=== PATIENT | male | born 1980 | race Caucasian/White ===

== ENCOUNTER 2018-04-27 17:49 | Emergency (ER) | payer MEDICAID ==
--- NOTE | 2018-04-27 18:06 | EDPHY ---
H & P Time Seen by Provider: 04/27/18 18:06 HPI/ROS: HPI: This is a 37-year-old male who presents with Chief Complaint: Nausea, vomiting, alcohol withdrawal Location: GI Quality: Nausea, vomiting Duration: Started approximately 1-3 hours prior to arrival Signs and Symptoms: no fever, + nausea, + vomiting, + blood tinged vomit; no blood in stool, no abdominal bloating, no diarrhea, no back pain, no urinary symptoms, no testicular/groin pain, no indigestion, no chest pain, no shortness of breath Timing: Acute, intermittent episodes Severity: [id number] Context: Patient presents with sudden onset of nausea and vomiting and blood tinged vomit that started approximately 1-3 hours prior to arrival. He reports that he began to feel nauseous and anxious upon waking this morning. Approximately 1-3 hours prior to arrival he started to vomit several times. He noticed some blood tinge vomit. Denies any bright red vomit. Patient reports that he normally drinks a 5th of vodka daily for the last 2 years since his mother . Patient reports that his last drink was Thursday afternoon. Reports no prior hospitalizations for alcohol withdrawal or alcohol withdrawal seizures. [facility] is [facility]. He denies any homicidal ideation, suicidal ideation, hallucinations. No prior history of esophageal varices/gastritis. Modifying Factors: None Comment: ROS: A comprehensive 10 system review of systems is otherwise negative aside from elements mentioned in the history of present illness. MEDICAL/SURGICAL/SOCIAL HISTORY: Medical history: Alcoholism. Does not take any regular medications. Surgical history: Denies Social history: Employed. Divorce. Family history noncontributory. CONSTITUTIONAL: Extremely polite and cooperative, middle-aged white male, awake and alert, diaphoretic HEENT: Atraumatic and normocephalic, PERRL, EOMI. Nares patent; no rhinorrhea; no nasal mucosal edema. Tympanic membranes clear. Oropharynx clear, no exudate and moist pink mucosa. Airway patent. No lymphadenopathy. No meningismus. Cardiovascular: Normal S1/S2, tachycardia, regular rhythm, without murmur rub or gallop. PULMONARY/CHEST: Symmetrical and nontender. Clear to auscultation bilaterally. Good air movement. No accessory muscle usage. ABDOMEN: Soft, nondistended, moderate epigastric tenderness, no rebound, no guarding, no peritoneal signs, no masses or organomegaly. No CVAT. EXTREMITIES: 2/2 pulses, strength 5/5, no deformities, no clubbing, no cyanosis or edema. NEUROLOGICAL: no focal neuro deficits. GCS 15. SKIN: Warm, no erythema. no rash. Good capillary refill. Source: Patient, RN/MD Exam Limitations: No limitations Constitutional: Initial Vital Signs Temperature (C) 37 C 04/27/18 18:03 Heart Rate 146 H 04/27/18 18:03 Respiratory Rate 18 04/27/18 18:03 Blood Pressure 157/107 H 04/27/18 18:03 O2 Sat (%) 95 04/27/18 18:03 O2 Delivery Mode Room Air O2 (L/minute) 2 Allergies/Adverse Reactions: shellfish derived Allergy (Verified 04/27/18 18:08) sweet potato Allergy (Verified 04/27/18 18:08) Home Medications: Medication Instructions Recorded Ondansetron Odt [Zofran Odt 4 mg 4 mg PO Q4 PRN #12 tab 04/27/18 (*)] Pantoprazole Sodium [Protonix 40mg 40 mg PO DAILY #14 tab 04/27/18 (*)] Medical Decision Making - Diagnostics Imaging Results: Imaging Impressions Abdomen Ultrasound 04/27/18 19:16 Impression: 1. Technically somewhat limited examination negative for findings to suggest acute cholecystitis. 2. Suspect hepatic steatosis. 3. See above report for additional findings. Results called and discussed with Simona BLUM on 04/27/2018 at 20:16. ED Course/Re-evaluation: Vital signs reviewed upon arrival in show tachycardia and hypertension. Placed on awake overnight monitor. IV access and laboratory studies obtained. EKG ordered. 1830: Initial CIWA=10. Alcohol withdrawal protocol initiated. Patient given 2 L normal saline, IV Zofran 4 mg, IV Protonix 80 mg, p.o. Librium 50 mg, IV Ativan 4 mg No signs of delirium/coma/seizure activity EKG my read with attending shows sinus tachycardia with a rate of 148 beats per minute with prolonged QT interval of 591, nonspecific ST changes. 1914: reassessed patient. HR 145. IV Ativan 4 mg given. Labs reviewed and show stable H&H, no platelet dysfunction, sodium 133, creatinine 1.4, CO2 12, anion gap 27, T bili 3.1, conjugated bili 2.2, AST 67, lipase within normal limits. Hepatitis panel ordered along with abdominal ultrasound 2009: 2 L normal saline completed; repeat BNP level drawn. CIWA=5. IV Ativan 2 mg and another 1 L normal saline given. 2018: Called by radiologist, Dr. Alfredo West, who advises abdominal ultrasound shows no signs of cholecystitis, no cholelithiasis, no common bile duct dilatation, + fatty liver, pancreas is not visualized. 2044: Reassessed patient. Sleeping soundly. Reports relief of symptoms. Drinking water without difficulty. Repeat BNP level shows sodium 135, potassium 4.1, CO2 16, anion gap 17, creatinine 1.1 which is greatly improved from prior values. 2219: Vital signs improved. Ambulating to the restroom without ataxia. Patient has had a total of 8 mg of IV Ativan and 50 mg of p.o. Librium. He is asking to be [facility] to the [facility] which I feel is appropriate. I will give gastroenterology referral for EGD outpatient and Rx Protonix. Hepatitis panel negative. Eating and drinking without difficulty. No signs of gastric hemorrhage/ esophageal varices bleeding. This patient was seen under the supervision of my secondary supervising physician. I evaluated care for this patient independently. Discussed this patient with Dr. Mendoza. Differential Diagnosis: Abdominal pain including but not limited to appendicitis, cholecystitis, gastritis and urinary tract infection. - Data Points Laboratory Results: Laboratory Results 04/27/18 18:34 04/27/18 20:05 04/27/18 04/27/18 04/27/18 20:05 18:34 18:34 WBC RBC Hgb Hct MCV MCH MCHC RDW Plt Count MPV Neut % (Auto) Lymph % (Auto) [place] % (Auto) Eos % (Auto) Baso % (Auto) Nucleat RBC Rel Count Absolute Neuts (auto) Absolute Lymphs (auto) Absolute Monos (auto) Absolute Eos (auto) Absolute Basos (auto) Absolute Nucleated RBC Immature Gran % Immature Gran # RBC/WBC/PLT Morphology Platelet Estimate Sodium 135 mEq/L mEq/L 133 mEq/L L mEq/L (135-145) (135-145) Potassium 4.1 mEq/L mEq/L 4.5 mEq/L mEq/L (3.3-5.0) (3.3-5.0) Chloride 102 mEq/L mEq/L 94 mEq/L L mEq/L (97-110) (97-110) Carbon Dioxide 16 mEq/l L mEq/l 12 mEq/l L mEq/l (22-31) (22-31) Anion Gap 17 mEq/L H mEq/L 27 mEq/L H mEq/L (6-14) (6-14) BUN 10 mg/dL mg/dL 11 mg/dL mg/dL (7-23) (7-23) Creatinine 1.1 mg/dL mg/dL 1.4 mg/dL H mg/dL (0.7-1.3) (0.7-1.3) Estimated GFR > 60 57 Glucose 150 mg/dL H mg/dL 203 mg/dL H mg/dL (70-100) (70-100) Calcium 9.8 mg/dL mg/dL 11.7 mg/dL H mg/dL (8.5-10.4) (8.5-10.4) Phosphorus 3.0 mg/dL mg/dL (2.5-4.5) Total Bilirubin 3.1 mg/dL H mg/dL (0.1-1.4) Conjugated Bilirubin 0.9 mg/dL H mg/dL (0.0-0.5) Unconjugated Bilirubin 2.2 mg/dL H mg/dL (0.0-1.1) AST 67 IU/L H IU/L (17-59) ALT 59 IU/L IU/L (21-72) Alkaline Phosphatase 114 IU/L IU/L (38-126) Total Protein 9.0 g/dL H g/dL (6.3-8.2) Albumin 5.4 g/dL H g/dL (3.5-5.0) Lipase 195 IU/L IU/L (23-300) Hepatitis A IgM Ab NEGATIVE (NEGATIVE) Hep Bs Antigen NEGATIVE (NEGATIVE) Hep B Core IgM Ab NEGATIVE (NEGATIVE) Hepatitis C Antibody NEGATIVE (NEGATIVE) 04/27/18 18:34 WBC 7.59 10^3/uL 10^3/uL (3.80-9.50) RBC 5.65 10^6/uL 10^6/uL (4.40-6.38) Hgb 17.3 g/dL g/dL (13.7-17.5) Hct 50.2 % % (40.0-51.0) MCV 88.8 fL fL (81.5-99.8) MCH 30.6 pg pg (27.9-34.1) MCHC 34.5 g/dL g/dL (32.4-36.7) RDW 13.0 % % (11.5-15.2) Plt Count 249 10^3/uL 10^3/uL (150-400) MPV 10.2 fL fL (8.7-11.7) Neut % (Auto) 86.5 % H % (39.3-74.2) Lymph % (Auto) 7.4 % L % (15.0-45.0) [place] % (Auto) 5.5 % % (4.5-13.0) Eos % (Auto) 0.0 % L % (0.6-7.6) Baso % (Auto) 0.3 % % (0.3-1.7) Nucleat RBC Rel Count 0.0 % % (0.0-0.2) Absolute Neuts (auto) 6.57 10^3/uL H 10^3/uL (1.70-6.50) Absolute Lymphs (auto) 0.56 10^3/uL L 10^3/uL (1.00-3.00) Absolute Monos (auto) 0.42 10^3/uL 10^3/uL (0.30-0.80) Absolute Eos (auto) 0.00 10^3/uL L 10^3/uL (0.03-0.40) Absolute Basos (auto) 0.02 10^3/uL 10^3/uL (0.02-0.10) Absolute Nucleated RBC 0.00 10^3/uL 10^3/uL (0-0.01) Immature Gran % 0.3 % % (0.0-1.1) Immature Gran # 0.02 10^3/uL 10^3/uL (0.00-0.10) RBC/WBC/PLT Morphology TNP Platelet Estimate TNP Sodium Potassium Chloride Carbon Dioxide Anion Gap BUN Creatinine Estimated GFR Glucose Calcium Phosphorus Total Bilirubin Conjugated Bilirubin Unconjugated Bilirubin AST ALT Alkaline Phosphatase Total Protein Albumin Lipase Hepatitis A IgM Ab Hep Bs Antigen Hep B Core IgM Ab Hepatitis C Antibody Medications Given: Discontinued Medications Chlordiazepoxide (Librium 25 Mg Prepack#6) 1 btl TAKEHOME EDNOW ONE Stop: 04/27/18 21:57 Last Admin: 04/27/18 22:22 Dose: 1 btl Chlordiazepoxide HCl (Librium) 50 mg PO EDNOW ONE Stop: 04/27/18 18:28 Last Admin: 04/27/18 19:03 Dose: 50 mg Sodium Chloride (Ns) 1,000 mls @ 0 mls/hr IV EDNOW ONE; Wide Open PRN Reason: Protocol Stop: 04/27/18 18:27 Last Admin: 04/27/18 18:32 Dose: 1,000 mls Sodium Chloride (Ns) 1,000 mls @ 0 mls/hr IV EDNOW ONE; Wide Open PRN Reason: Protocol Stop: 04/27/18 18:27 Last Admin: 04/27/18 18:38 Dose: 1,000 mls Sodium Chloride (Ns) 1,000 mls @ 0 mls/hr IV EDNOW ONE; Wide Open PRN Reason: Protocol Stop: 04/27/18 20:29 Last Admin: 04/27/18 20:49 Dose: 1,000 mls Lorazepam (Ativan Injection) 0 mg IVP Q1H PRN; Protocol PRN Reason: Alcohol Withdrawal w/IV access Stop: 04/28/18 06:27 Last Admin: 04/27/18 20:12 Dose: 2 mg Lorazepam (Ativan Injection) 4 mg IVP EDNOW ONE Stop: 04/27/18 19:16 Last Admin: 04/27/18 19:19 Dose: 4 mg Ondansetron HCl (Zofran) 4 mg IVP EDNOW ONE Stop: 04/27/18 18:27 Last Admin: 04/27/18 18:35 Dose: 4 mg Pantoprazole Sodium (Protonix) 80 mg IVP EDNOW ONE Stop: 04/27/18 18:27 Last Admin: 04/27/18 18:36 Dose: 80 mg Departure - Departure Disposition: Home, Routine, Self-Care Clinical Impression: Alcohol abuse, Acute alcoholic gastritis without hemorrhage, Hepatic steatosis Alcohol withdrawal Qualifiers: Complication of substance-induced condition: uncomplicated Qualified Code(s): F10.230 - Alcohol dependence with withdrawal, uncomplicated Condition: Good Instructions: Chlordiazepoxide/Clidinium (By mouth), Gastritis (ED), Abuse of Alcohol (ED), Upper Endoscopy (DC) Additional Instructions: Rest as much as possible until you are feeling better. Consume a minimum of 8-10 glasses of water or electrolyte fluid replacement drinks that include Gatorade, Powerade, Pedialyte. Eat a bland diet for the next 48 hours and then slowly advance as tolerated. Take Protonix daily and avoid any ibuprofen, Motrin, Aleve as this can irritate your stomach. Refrain from drinking alcohol. You have been given Librium and will be discharged to the [facility] for further care. Follow-up with Gastroenterology in the next 1-2 weeks to discuss candidacy for EGD outpatient. Referrals: [facility] [Outside] - As per Instructions Leora Augustine MD [Medical Doctor] - As per Instructions Prescriptions: Ondansetron Odt [Zofran Odt 4 mg (*)] 4 mg PO Q4 PRN #12 tab PRN Reason: Nausea/Vomiting, Use 1st Pantoprazole Sodium [Protonix 40mg (*)] 40 mg PO DAILY #14 tab
[2018-04-27] MEDS ORDERED: PANTOPRAZOLE SODIUM 40 MG VIAL IVP ONE (18:26)
[2018-04-27] MEDS ORDERED: LORazepam 1 MG TAB PO PRN (18:26)
[2018-04-27] MEDS ORDERED: NS 1,000 ML IV ONE ×3 (18:26→20:28)
[2018-04-27] MEDS ORDERED: ONDANSETRON 4 MG/2 ML VIAL IVP ONE (18:26)
[2018-04-27] MEDS ORDERED: chlordiazePOXIDE 25 MG CAP PO ONE (18:27)
[2018-04-27] MEDS: LORazepam 2 MG/ML INJ IVP PRN ×2 (18:34→20:12)
[2018-04-27 18:43] LABS: PLATELET COUNT 249 10^3/uL (150-400)
[2018-04-27] MEDS ORDERED: LORazepam 2 MG/ML INJ IVP ONE (19:15)
--- NOTE | 2018-04-27 21:03 | CPEKG ---
Test Reason : OPEN Blood Pressure : / mmHG Vent. Rate : 148 BPM Atrial Rate : 149 BPM P-R Int : 110 ms QRS Dur : 100 ms QT Int : 376 ms P-R-T Axes : -14 047 013 degrees QTc Int : 591 ms Sinus tachycardia Borderline ST elevation, anterior leads Prolonged QT interval Confirmed by Kirsty Mendoza ([id number]) on 04/27/2018 9:03:28 PM Referred By: Confirmed By:Kirsty Mendoza
[2018-04-27 21:07] LABS: HEPATITIS A ANTIBODY IGM (BCH) NEGATIVE (NEGATIVE); HEPATITIS B CORE AB IGM NEGATIVE (NEGATIVE); HEPATITIS B SURFACE ANTIGEN NEGATIVE (NEGATIVE); HEPATITIS C ANTIBODY TOTAL NEGATIVE (NEGATIVE)
[2018-04-27] MEDS ORDERED: CHLORDIAZEPOXIDE 25MG PREPK#6 BTL TAKEHOME ONE (21:56)
[2018-04-27 22:29] VITALS: BP 134/90
== END 2018-04-27 22:29 | disposition home or self-care (01) ==
DX: R11.2 Nausea with vomiting, unspecified (principal); F10.230 Alcohol dependence with withdrawal, uncomplicated; E86.9 Volume depletion, unspecified; R16.0 Hepatomegaly, not elsewhere classified
CPT/HCPCS: 96374; G0472; J2060; J2405

== ENCOUNTER 2018-08-09 10:29 | Emergency (ER) | payer MEDICAID ==
[2018-08-09 10:36] VITALS: BP 148/98
--- NOTE | 2018-08-09 10:38 | EDPHY ---
H & P Stated Complaint: Detox Time Seen by Provider: 08/09/18 10:37 - Personal History Tetanus Vaccine Date: < 10 years - Medical/Surgical History Hx Asthma: Yes Hx Chronic Respiratory Disease: Yes Hx Diabetes: No Hx Cardiac Disease: No Hx Renal Disease: No Hx Cirrhosis: No Hx Alcoholism: Yes Hx HIV/AIDS: No Hx Splenectomy or Spleen Trauma: No Other PMH: alcoholism - Social History Smoking Status: Former smoker Constitutional: Initial Vital Signs Temperature (C) 36.9 C 08/09/18 10:31 Heart Rate 93 08/09/18 10:31 Respiratory Rate 16 08/09/18 10:31 Blood Pressure 148/98 H 08/09/18 10:31 O2 Sat (%) 97 08/09/18 10:31 O2 Delivery Mode Room Air Allergies/Adverse Reactions: shellfish derived Allergy (Verified 08/09/18 10:31) sweet potato Allergy (Verified 08/09/18 10:31) Home Medications: Medication Instructions Recorded Ondansetron Odt [Zofran Odt 4 mg 4 mg PO Q4 PRN #12 tab 04/27/18 (*)] Pantoprazole Sodium [Protonix 40mg 40 mg PO DAILY #14 tab 04/27/18 (*)] Medical Decision Making ED Course/Re-evaluation: CHIEF COMPLAINT: Alcohol detox HISTORY OF PRESENT ILLNESS: The patient is a 38 y/o male with a history of alcoholism arriving for alcohol detox. After presenting to the [facility] he was advised to present to the emergency department for Librium. He did consume alcohol with in the last 24 hours. He denies current alcohol withdrawal symptoms. No suicidal or homicidal ideations. No fever, headache, body aches, lightheadedness, chest pain, heart palpitations , shortness of breath, cough, abdominal pain, urinary or bowel complaints, numbness, paresthesias. REVIEW OF SYSTEMS: A comprehensive 10 system review of systems is otherwise negative aside from elements mentioned in the history of present illness and medical decision making. PHYSICAL EXAM: HR, BP, O2 Sat, RR. Temp noted General Appearance: Alert, well hydrated, appropriate, and non-toxic appearing. Head: Atraumatic without scalp tenderness or obvious injury Eyes: Pupils equal, round, reactive to light and accommodation, EOMI, no trauma , no injection. Ears: Clear bilaterally, no perforation, normal landmarks Nose: Atraumatic, no rhinorrhea, clear. Throat: There is no erythema or exudates, no lesions, normal tonsils, mucus membranes moist. Neck: Supple, 2+ carotid upstroke, nontender, no lymphadenopathy. Respiratory: No retractions, no distress, no wheezes, and no accessory muscle use. Lungs are clear to auscultation bilaterally. Cardiovascular: Regular rate and rhythm, no murmurs, rubs, or gallops. Bilateral carotid, radial, dorsalis pedis, and posterior tibial pulses intact. Good capillary refill all extremities. Gastrointestinal: Abdomen is soft, nontender, non-distended, no masses, no rebound, no guarding, no peritoneal signs. Musculoskeletal: Normal active ROM of all extremities, atraumatic. Neurological: Alert, appropriate, and interactive. The patient has normal DTRs and non-focal cranial nerves, motor, sensory, and cerebellar exam. Skin: No rashes, good turgor, no nodules on palpation. Past medical history: Alcoholism Past surgical history: Denies Family history: Denies Social history: Friend at bedside, lives in [place], not employed DIAGNOSTICS/PROCEDURES/CRITICAL CARE TIME: Not indicated. DIFFERENTIAL DIAGNOSIS: The differential diagnosis for the patient's symptoms included but was not limited to functional and major depression, situational depression, medication side effect, drugs, and alcohol abuse. MEDICAL DECISION MAKING: The patient is a very health appearing 38 y/o male with a history of alcoholism arriving for alcohol detox. He was advised by the [facility] to present here for to receive Librium. He is not exhibiting withdrawal symptoms. I have advised him to take Librium and go directly to the [facility]. Patient and his friend are comfortable with this plan. Departure - Departure Disposition: Home, Routine, Self-Care Clinical Impression: Alcohol abuse Condition: Good Instructions: Abuse of Alcohol (ED) Additional Instructions: 1, Please refrain from abusing alcohol. 2. Take Librium as prescribed at the [facility]. 3. Return to the emergency department immediately for fever, vomiting, confusion , headache, abdominal pain or other worsening of condition. 4. Followup with your primary care physician within 72 hours for reevaluation. Referrals: [facility] 24 Hours [Outside] - As per Instructions Report Scribed for: Jef Stewart Report Scribed by: Patricia Redd Date of Report: 08/09/18 Time of Report: 10:40
[2018-08-09] MEDS ORDERED: CHLORDIAZEPOXIDE 25MG PREPK#6 BTL TAKEHOME ONE (10:43)
== END 2018-08-09 11:08 | disposition home or self-care (01) ==
DX: F10.20 Alcohol dependence, uncomplicated (principal)